=== PATIENT | female | born 1970 | race Hispanic/Latino ===

== ENCOUNTER → 2021-06-24 | Outpatient (CLI) | payer MEDICARE | LOC: US 13:10 | PROVIDERS: ATTEND Internal Medicine | DX: R10.10 Upper abdominal pain, unspecified (principal); K80.20 Calculus of gallbladder without cholecystitis without obstruction | CPT/HCPCS: 76705 ==

== ENCOUNTER 2024-03-25 19:09 | Inpatient (IN) | payer MEDICARE ==
[~2024-03-25] VITALS: Ht 152.4 cm; Wt 95.7 kg
[~2024-03-25 19:09] MED LIST: AMLODIPINE BESY10 MG PO; ASPIRIN81 MG PO; ATORVASTATIN CA40 MG PO; CLOPIDOGREL75 MG PO; FUROSEMIDE40 MG PO; HYDRALAZINE HCL50 MG PO; LINZESS290 MCG PO; METOPROLOL TART50 MG PO; PROBIOTIC & AC1 EACH PO; QUETIAPINE FUM100 MG PO; RYBELSUS7 MG PO
[2024-03-25] MEDS: NITROGLYCERIN 2% OINT 1 GM PKT TOP STA (20:07)
[2024-03-25 20:12] LABS: BASOPHILS # (AUTO) 0.1 (0.0-0.1); BASOPHILS % 0.5 % (0.0-1.0); EOSINOPHILS # (AUTO) 0.2 (0.0-0.4); EOSINOPHILS % 1.7 % (0.0-6.0); HEMATOCRIT 39.4 % (34.2-44.1); HEMOGLOBIN 12.9 g/dL (12.0-16.0); LYMPHOCYTES # (AUTO) 2.8 (1.0-3.2); LYMPHOCYTES % 25.9 % (18.0-39.1); MEAN CORPUSCULAR HEMOGLOBIN 24.4 pg (28-32); MEAN CORPUSCULAR HGB CONC 32.7 g/dL (31-35); MEAN CORPUSCULAR VOLUME 74.6 fL (81-99); MONOCYTES # (AUTO) 0.9 (0.2-0.8); MONOCYTES % 8.4 % (4.4-11.3); NEUTROPHILS # (AUTO) 6.9 (2.1-6.9); NEUTROPHILS % 63.1 % (38.7-80.0); PLATELET COUNT 355 x10e3/uL (140-360); RED BLOOD COUNT 5.28 x10e6/uL (3.6-5.1); RED CELL DISTRIBUTION WIDTH 15.5 % (11.7-14.4)
[2024-03-25 20:32] LABS: ALBUMIN 4.4 g/dL (3.5-5.0); ALBUMIN/GLOBULIN RATIO 1.1 (0.8-2.0); ANION GAP 18.3 mmol/L (8-16); BILIRUBIN,TOTAL 0.5 mg/dL (0.2-1.2); CALCIUM 9.8 mg/dL (8.4-10.2); CREATININE, SERUM 0.98 mg/dL (0.57-1.11); TOTAL PROTEIN 8.5 g/dL (6.5-8.1)
[2024-03-25 20:33] LABS: POTASSIUM 3.3 mmol/L (3.5-5.1)
[2024-03-25] MEDS: FAMOTIDINE 20 MG/2 ML VIAL IV STA (20:40)
[2024-03-25] MEDS: ONDANSETRON HCL INJ 2MG/ML 2ML 2 MG/ML VIAL IV STA ×2 (20:41→21:50)
[2024-03-25 20:51] LABS: TROPONIN I 0.012 ng/mL (0-0.300)
[2024-03-25] MEDS ORDERED: ONDANSETRON HCL INJ 2MG/ML 2ML 2 MG/ML VIAL IV PRN (21:15)
[2024-03-25] MEDS ORDERED: IOPAMIDOL 370 MG/ML 100 ML INFUS..BTL INJ ONE (21:46)
[2024-03-25] MEDS: Morphine 4mg INJECTION 4 MG/ML INJ IV STA (21:50)
[2024-03-25 22:10] VITALS: PULSE 88; RESP 17; O2SAT 96
[2024-03-25] MEDS: SODIUM CHLORIDE 0.9% 1000ML 1,000 ML IV SCH (22:17)
[2024-03-25 22:44] VITALS: BP 116/79; PULSE 86; RESP 19; TEMP 97.7; O2SAT 96
[2024-03-25] MEDS: PROMETHAZINE 25MG/ NS 50ML (IV) IV STA (23:49)
[2024-03-26] VITALS (13 sets, daily range): BP systolic 116–140; BP diastolic 73–86; PULSE 79–99; RESP 16–19; TEMP 97.6–98.2; O2SAT 94–100
[2024-03-26] MEDS: QUETIAPINE FUMARATE 100 MG TAB PO SCH ×2 (01:12→20:31)
[2024-03-26] MEDS: Morphine 4mg INJECTION 4 MG/ML INJ IV PRN (05:37)
[2024-03-26 06:21] LABS: BASOPHILS # (AUTO) 0.1 (0.0-0.1); BASOPHILS % 0.7 % (0.0-1.0); EOSINOPHILS # (AUTO) 0.1 (0.0-0.4); EOSINOPHILS % 1.4 % (0.0-6.0); HEMOGLOBIN 11.6 g/dL (12.0-16.0); LYMPHOCYTES # (AUTO) 2.4 (1.0-3.2); LYMPHOCYTES % 25.9 % (18.0-39.1); MEAN CORPUSCULAR HEMOGLOBIN 24.7 pg (28-32); MEAN CORPUSCULAR HGB CONC 32.2 g/dL (31-35); MEAN CORPUSCULAR VOLUME 76.8 fL (81-99); MONOCYTES # (AUTO) 0.7 (0.2-0.8); MONOCYTES % 7.6 % (4.4-11.3); NEUTROPHILS # (AUTO) 5.8 (2.1-6.9); NEUTROPHILS % 63.8 % (38.7-80.0); PLATELET COUNT 308 x10e3/uL (140-360); RED BLOOD COUNT 4.69 x10e6/uL (3.6-5.1); RED CELL DISTRIBUTION WIDTH 15.7 % (11.7-14.4); WHITE BLOOD COUNT 9.09 x10e3/uL (4.8-10.8)
[2024-03-26 06:22] LABS: ALBUMIN/GLOBULIN RATIO 1.1 (0.8-2.0); ANION GAP 16.8 mmol/L (8-16); BILIRUBIN,TOTAL 0.4 mg/dL (0.2-1.2); CALCIUM 9.1 mg/dL (8.4-10.2); CREATININE, SERUM 0.79 mg/dL (0.57-1.11); POTASSIUM 3.8 mmol/L (3.5-5.1); TOTAL PROTEIN 7.6 g/dL (6.5-8.1)
[2024-03-26 06:46] LABS: TROPONIN I 0.019 ng/mL (0-0.300)
[2024-03-26] MEDS ORDERED: ALBUTEROL/IPRATROPIUM 3 ML NEB NEB PRN (12:45)
[2024-03-26] MEDS ORDERED: DOCUSATE SODIUM 100 MG CAP PO PRN (12:45)
[2024-03-26] MEDS ORDERED: DEXTROSE 50% SYRINGE 50 ML IV PRN (12:45)
[2024-03-26] MEDS ORDERED: METOPROLOL TARTRATE INJ 1 MG/ML VIAL IV PRN (12:45)
[2024-03-26 14:15] LABS: CHOL/HDL RATIO 3.9 (3.0-3.6)
[2024-03-26] MEDS: ASPIRIN 81 MG CHEW TAB PO SCH (14:23)
[2024-03-26] MEDS: CLOPIDOGREL BISULFATE 75 MG TAB PO SCH (14:23)
[2024-03-26] MEDS: LINACLOTIDE 145 MCG CAPSULE PO SCH (14:24)
[2024-03-26] MEDS: AMLODIPINE BESYLATE 10 MG TAB PO SCH (14:26)
[2024-03-26] MEDS: INSULIN REGULAR, HUMAN 100 UNIT/1 ML SQ SCH (16:30)
[2024-03-26] MEDS ORDERED: AMLODIPINE BESYLATE 10 MG TAB PO SCH (17:00)
[2024-03-26] MEDS: METOPROLOL TARTRATE 50 MG TAB PO SCH (17:20)
[2024-03-26] MEDS: HYDRALAZINE HCL 25 MG TAB PO SCH (17:21)
[2024-03-26 17:25] LABS: TROPONIN I 0.003 ng/mL (0-0.300)
[2024-03-26] MEDS: ATORVASTATIN 40 MG TAB PO SCH (20:31)
[2024-03-26] MEDS: ONDANSETRON HCL INJ 2MG/ML 2ML 2 MG/ML VIAL IV PRN (22:30)
[2024-03-27] VITALS (7 sets, daily range): BP systolic 124–140; BP diastolic 71–82; PULSE 82–93; RESP 17–19; TEMP 97.8–98.6; O2SAT 93–98
[2024-03-27 07:10] LABS: BASOPHILS # (AUTO) 0.1 (0.0-0.1); BASOPHILS % 0.9 % (0.0-1.0); EOSINOPHILS # (AUTO) 0.3 (0.0-0.4); EOSINOPHILS % 3.9 % (0.0-6.0); HEMATOCRIT 33.9 % (34.2-44.1); HEMOGLOBIN 10.7 g/dL (12.0-16.0); LYMPHOCYTES % 28.9 % (18.0-39.1); MEAN CORPUSCULAR HEMOGLOBIN 24.3 pg (28-32); MEAN CORPUSCULAR HGB CONC 31.6 g/dL (31-35); MEAN CORPUSCULAR VOLUME 76.9 fL (81-99); MONOCYTES # (AUTO) 0.6 (0.2-0.8); MONOCYTES % 9.1 % (4.4-11.3); NEUTROPHILS # (AUTO) 3.9 (2.1-6.9); NEUTROPHILS % 56.5 % (38.7-80.0); PLATELET COUNT 263 x10e3/uL (140-360); RED BLOOD COUNT 4.41 x10e6/uL (3.6-5.1); RED CELL DISTRIBUTION WIDTH 15.6 % (11.7-14.4); WHITE BLOOD COUNT 6.85 x10e3/uL (4.8-10.8)
[2024-03-27 07:40] LABS: ANION GAP 13.3 mmol/L (8-16); CALCIUM 8.7 mg/dL (8.4-10.2); CREATININE, SERUM 0.76 mg/dL (0.57-1.11)
[2024-03-27 07:44] LABS: POTASSIUM 3.3 mmol/L (3.5-5.1)
[2024-03-27] MEDS: SENNOSIDES 8.6 MG TAB PO SCH (11:15)
[2024-03-27] MEDS: DOCUSATE SODIUM 100 MG CAP PO SCH (11:15)
[2024-03-27] MEDS: METOCLOPRAMIDE HCL 10 MG/2ML VIAL IV ONE (12:39)
[2024-03-27] MEDS: BISACODYL 5 MG TAB EC PO ONE ×3 (12:40→16:14)
[2024-03-27] MEDS: METOCLOPRAMIDE HCL 10 MG/2ML VIAL IV SCH (17:30)
[2024-03-27] MEDS: LEVOFLOXACIN 500MG/D5W 100ML 100 ML IV SCH (23:43)
[2024-03-27] MEDS: METRONIDAZOLE 500MG/NS 100ML 100 ML IV SCH (23:44)
[2024-03-28] VITALS (8 sets, daily range): BP systolic 119–139; BP diastolic 65–80; PULSE 84–105; RESP 16–20; TEMP 97.8–98.9; O2SAT 94–100
[2024-03-28] MEDS ORDERED: METRONIDAZOLE 500MG/NS 100ML 100 ML IV SCH
[2024-03-28 02:16] LABS: % IRON SATURATION 17 % (15-50); IRON 59 ug/dL (50-170); TOTAL IRON BINDING CAPACITY 350 ug/dL (261-478); TRANSFERRIN 250 mg/dL (180-382)
[2024-03-28 02:50] LABS: FOLATE 9.8 ng/mL (7.0-15.4)
[2024-03-28 06:48] LABS: BASOPHILS # (AUTO) 0.1 (0.0-0.1); BASOPHILS % 0.5 % (0.0-1.0); EOSINOPHILS # (AUTO) 0.2 (0.0-0.4); HEMATOCRIT 34.1 % (34.2-44.1); HEMOGLOBIN 11.4 g/dL (12.0-16.0); LYMPHOCYTES # (AUTO) 1.9 (1.0-3.2); LYMPHOCYTES % 17.7 % (18.0-39.1); MEAN CORPUSCULAR HEMOGLOBIN 25.1 pg (28-32); MEAN CORPUSCULAR HGB CONC 33.4 g/dL (31-35); MEAN CORPUSCULAR VOLUME 74.9 fL (81-99); MONOCYTES # (AUTO) 0.8 (0.2-0.8); MONOCYTES % 7.6 % (4.4-11.3); NEUTROPHILS # (AUTO) 7.9 (2.1-6.9); NEUTROPHILS % 71.6 % (38.7-80.0); PLATELET COUNT 265 x10e3/uL (140-360); RED BLOOD COUNT 4.55 x10e6/uL (3.6-5.1); RED CELL DISTRIBUTION WIDTH 15.8 % (11.7-14.4); WHITE BLOOD COUNT 10.96 x10e3/uL (4.8-10.8)
[2024-03-28 07:12] LABS: ANION GAP 13.4 mmol/L (8-16); CALCIUM 8.7 mg/dL (8.4-10.2); CREATININE, SERUM 0.72 mg/dL (0.57-1.11)
[2024-03-28 07:13] LABS: POTASSIUM 3.4 mmol/L (3.5-5.1)
[2024-03-28] MEDS: ENOXAPARIN 30 MG/0.3 ML SYR SC SCH (17:05)
[2024-03-29] VITALS (9 sets, daily range): BP systolic 120–146; BP diastolic 74–86; PULSE 89–100; RESP 16–20; TEMP 97.8–98.6; O2SAT 96–99
[2024-03-29] MEDS: CYANOCOBALAMIN INJ 1,000 MCG/ML VIAL IM ONE (00:01)
[2024-03-29] MEDS: SODIUM CHLORIDE 0.9% 1000ML 1,000 ML IV SCH (06:48)
[2024-03-29] MEDS ORDERED: IOPAMIDOL 370 MG/ML 100 ML INFUS..BTL INJ ONE (07:18)
[2024-03-29] MEDS: IRON-VITAMIN-MINERAL CAPSULE PO SCH (08:06)
[2024-03-29] MEDS: CYANOCOBALAMIN INJ 1,000 MCG/ML VIAL IM SCH (08:07)
[2024-03-29] MEDS: MELATONIN 3 MG TAB PO PRN (20:07)
[2024-03-29] MEDS: SIMETHICONE 80 MG CHEW PO PRN (20:08)
[2024-03-30] VITALS (10 sets, daily range): BP systolic 117–130; BP diastolic 62–84; PULSE 76–93; RESP 16–20; TEMP 97.6–98.7; O2SAT 97–100
[2024-03-31] VITALS (9 sets, daily range): BP systolic 121–143; BP diastolic 62–83; PULSE 70–92; RESP 16–18; TEMP 97.3–98.2; O2SAT 97–100
[2024-03-31 07:12] LABS: BASOPHILS # (AUTO) 0.1 (0.0-0.1); BASOPHILS % 0.6 % (0.0-1.0); EOSINOPHILS # (AUTO) 0.3 (0.0-0.4); EOSINOPHILS % 3.6 % (0.0-6.0); HEMATOCRIT 31.3 % (34.2-44.1); HEMOGLOBIN 10.3 g/dL (12.0-16.0); LYMPHOCYTES # (AUTO) 2.5 (1.0-3.2); LYMPHOCYTES % 28.7 % (18.0-39.1); MEAN CORPUSCULAR HEMOGLOBIN 24.7 pg (28-32); MEAN CORPUSCULAR HGB CONC 32.9 g/dL (31-35); MEAN CORPUSCULAR VOLUME 75.1 fL (81-99); MONOCYTES # (AUTO) 0.8 (0.2-0.8); MONOCYTES % 9.3 % (4.4-11.3); NEUTROPHILS # (AUTO) 4.8 (2.1-6.9); NEUTROPHILS % 56.3 % (38.7-80.0); PLATELET COUNT 279 x10e3/uL (140-360); RED BLOOD COUNT 4.17 x10e6/uL (3.6-5.1); RED CELL DISTRIBUTION WIDTH 16.8 % (11.7-14.4); WHITE BLOOD COUNT 8.53 x10e3/uL (4.8-10.8)
[2024-03-31 07:30] LABS: ANION GAP 14.2 mmol/L (8-16); CALCIUM 8.3 mg/dL (8.4-10.2); CREATININE, SERUM 0.68 mg/dL (0.57-1.11)
[2024-03-31 07:35] LABS: POTASSIUM 3.2 mmol/L (3.5-5.1)
[2024-04-01] VITALS: BP 121/66; PULSE 86; RESP 17; TEMP 98.3; O2SAT 96
[2024-04-01 04:00] VITALS: BP 133/83; PULSE 91; RESP 17; TEMP 97.9; O2SAT 98
[2024-04-01 07:25] VITALS: PULSE 87; RESP 18; O2SAT 97
[2024-04-01 07:44] VITALS: BP 137/80; PULSE 100; RESP 18; TEMP 97.7; O2SAT 97
[2024-04-01 07:57] VITALS: BP 137/80; PULSE 100; RESP 18; TEMP 97.7; O2SAT 97
[2024-04-01 08:22] VITALS: BP 137/80; PULSE 100
[2024-04-01] MEDS ORDERED: METAMUCIL FIBE3.4 GM PO (09:54)
[2024-04-01] MEDS ORDERED: ONDANSETRON ODT4 MG PO (09:54)
[2024-04-01] MEDS ORDERED: SENOKOT8.6 MG PO (09:54)
[2024-04-01] MEDS ORDERED: METRONIDAZOLE500 MG PO (09:54)
[2024-04-01] MEDS ORDERED: PROTONIX40 MG PO (09:54)
[2024-04-01] MEDS ORDERED: LEVOFLOXACIN250 MG PO (09:55)
[2024-04-01] MEDS: POTASSIUM CHLORIDE 20 MEQ TAB CR PO ONE (10:09)
== END 2024-04-01 10:29 | disposition home or self-care (01) | DRG 391 ==
LOC: ER 19:13 → ERHOLD 21:09 → MED/SURG3 23:06 → OBSVTOIN 03-27 13:29
PROVIDERS: ADMIT Internal Medicine; ATTEND Internal Medicine
DX: K57.32 Diverticulitis of large intestine without perforation or abscess without bleeding (principal); U07.1 COVID-19; I13.0 Hypertensive heart and chronic kidney disease with heart failure and stage 1 through stage 4 chronic kidney disease, or unspecified chronic kidney disease; I50.30 Unspecified diastolic (congestive) heart failure; Z68.41 Body mass index [BMI] 40.0-44.9, adult; E66.9 Obesity, unspecified; E11.22 Type 2 diabetes mellitus with diabetic chronic kidney disease; E11.42 Type 2 diabetes mellitus with diabetic polyneuropathy; I25.10 Atherosclerotic heart disease of native coronary artery without angina pectoris; E78.49 Other hyperlipidemia; M32.9 Systemic lupus erythematosus, unspecified; K59.09 Other constipation; M19.90 Unspecified osteoarthritis, unspecified site; N83.292 Other ovarian cyst, left side; R11.2 Nausea with vomiting, unspecified; N18.9 Chronic kidney disease, unspecified; H54.8 Legal blindness, as defined in USA; Z79.84 Long term (current) use of oral hypoglycemic drugs; Z79.82 Long term (current) use of aspirin; Z79.02 Long term (current) use of antithrombotics/antiplatelets; Z95.1 Presence of aortocoronary bypass graft; Z86.73 Personal history of transient ischemic attack (TIA), and cerebral infarction without residual deficits; Z88.8 Allergy status to other drugs, medicaments and biological substances
CPT/HCPCS: 36415; 71045; 74177; 80048; 80053; 80061; 82550; 82607; 82746; 82948; 83036; 83540; 83690; 83880; 84466; 84484; 85025; 85045; 93005; 93306; 94799; 99284; G0378; J1650; J1956; J2270; J2405; J2550; J2765; J3420; J7030; Q9967; U0002

== ENCOUNTER 2024-08-10 13:52 | Emergency (ER) | payer MEDICARE ==
[~2024-08-10] VITALS: Ht 152.4 cm; Wt 95.7 kg
[~2024-08-10 13:52] MED LIST changes: +LEVOFLOXACIN250 MG PO; +METAMUCIL FIBE3.4 GM PO; +METRONIDAZOLE500 MG PO; +NEURONTIN100 MG PO; +OMEPRAZOLE40 MG PO; +ONDANSETRON ODT4 MG PO; +PROTONIX40 MG PO; +SENOKOT8.6 MG PO
[2024-08-10 14:14] VITALS: TEMP 98.8
[2024-08-10 14:36] LABS: BASOPHILS # (AUTO) 0.1 (0.0-0.1); BASOPHILS % 0.7 % (0.0-1.0); EOSINOPHILS # (AUTO) 0.2 (0.0-0.4); EOSINOPHILS % 2.3 % (0.0-6.0); HEMATOCRIT 41.5 % (34.2-44.1); HEMOGLOBIN 13.4 g/dL (12.0-16.0); LYMPHOCYTES # (AUTO) 2.8 (1.0-3.2); LYMPHOCYTES % 32.8 % (18.0-39.1); MEAN CORPUSCULAR HEMOGLOBIN 26.1 pg (28-32); MEAN CORPUSCULAR HGB CONC 32.3 g/dL (31-35); MEAN CORPUSCULAR VOLUME 80.9 fL (81-99); MONOCYTES # (AUTO) 0.7 (0.2-0.8); MONOCYTES % 8.3 % (4.4-11.3); NEUTROPHILS # (AUTO) 4.7 (2.1-6.9); NEUTROPHILS % 55.4 % (38.7-80.0); PLATELET COUNT 280 x10e3/uL (140-360); RED BLOOD COUNT 5.13 x10e6/uL (3.6-5.1); RED CELL DISTRIBUTION WIDTH 15.8 % (11.7-14.4); WHITE BLOOD COUNT 8.53 x10e3/uL (4.8-10.8)
[2024-08-10 14:40] LABS: INR 0.94; PROTHROMBIN TIME 13.1 seconds (11.9-14.5)
[2024-08-10 14:41] LABS: PARTIAL THROMBOPLASTIN TIME 27.1 seconds (23.8-35.5)
[2024-08-10 14:50] LABS: ALANINE AMINOTRANSFERASE 44 IU/L (0-55); ALBUMIN 4.3 g/dL (3.5-5.0); ALBUMIN/GLOBULIN RATIO 1.1 (0.8-2.0); ALKALINE PHOSPHATASE 89 IU/L (40-150); ANION GAP 16.6 mmol/L (8-16); BILIRUBIN,TOTAL 0.4 mg/dL (0.2-1.2); BLOOD UREA NITROGEN 17 mg/dL (7-26); BUN/CREATININE RATIO 16 (6-25); CALCIUM 9.8 mg/dL (8.4-10.2); CARBON DIOXIDE 21 mmol/L (22-29); CHLORIDE 102 mmol/L (98-107); CREATINE KINASE 61 IU/L (29-168); CREATININE, SERUM 1.08 mg/dL (0.57-1.11); EST GLOMERULAR FILTRATION RATE 62 ML/MIN (>=60); GLUCOSE 255 mg/dL (74-118); LIPASE 60 U/L (8-78); MAGNESIUM 1.9 MG/DL (1.3-2.1); POTASSIUM 3.6 mmol/L (3.5-5.1); SODIUM 136 mmol/L (136-145); TOTAL PROTEIN 8.1 g/dL (6.5-8.1)
[2024-08-10 14:55] LABS: TROPONIN I 0.004 ng/mL (0-0.300)
[2024-08-10] MEDS ORDERED: IOPAMIDOL 370 MG/ML 100 ML INFUS..BTL INJ ONE (15:03)
[2024-08-10] MEDS: ONDANSETRON HCL INJ 2MG/ML 2ML 2 MG/ML VIAL IV STA (15:23)
[2024-08-10] MEDS: Morphine 4mg INJECTION 4 MG/ML INJ IV STA (15:24)
[2024-08-10] MEDS: SODIUM CHLORIDE 0.9% 500ML 500 ML IV ONE (15:24)
[2024-08-10 17:17] LABS: BILIRUBIN,URINE NEGATIVE (NEGATIVE); CLARITY,URINE CLEAR (CLEAR); COLOR,URINE YELLOW (YELLOW); GLUCOSE, URINE NEGATIVE (NEGATIVE); KETONES,URINE NEGATIVE (NEGATIVE); LEUKOCYTE ESTERASE ,URINE NEGATIVE (NEGATIVE); NITRITE,URINE NEGATIVE (NEGATIVE); PH,URINE 6 (5 - 7); PROTEIN,URINE DIPSTICK NEGATIVE (NEGATIVE); URINE UROBILINOGEN 0.2 mg/dL (0.2 - 1)
[2024-08-10 17:18] LABS: BACTERIA,URINE FEW /HPF; EPITHELIAL CELLS,URINE MANY /LPF; RBC,URINE 0-5 /HPF (0-5); WBC,URINE (MAN) 0-5 /HPF (0-5)
[2024-08-10 17:19] LABS: AMPHETAMINES SCREEN,URINE NEGATIVE (NEGATIVE); BENZODIAZEPINES SCREEN,URINE NEGATIVE (NEGATIVE); CANNABINOIDS SCREEN,URINE NEGATIVE (NEGATIVE); METHADONE SCREEN, URINE NEGATIVE (NEGATIVE); OPIATES SCREEN,URINE POSITIVE (NEGATIVE); PHENCYCLIDINE SCREEN,URINE NEGATIVE (NEGATIVE)
[2024-08-10] MEDS ORDERED: DICYCLOMINE HCL20 MG PO (18:21)
[2024-08-10] MEDS ORDERED: ONDANSETRON ODT4 MG PO (18:21)
[2024-08-10 18:30] VITALS: PULSE 85; RESP 14; O2SAT 96
== END 2024-08-10 18:44 | disposition home or self-care (01) ==
LOC: ER 14:01
DX: R10.11 Right upper quadrant pain (principal); R11.0 Nausea; I12.9 Hypertensive chronic kidney disease with stage 1 through stage 4 chronic kidney disease, or unspecified chronic kidney disease; E11.22 Type 2 diabetes mellitus with diabetic chronic kidney disease; E11.65 Type 2 diabetes mellitus with hyperglycemia; N18.9 Chronic kidney disease, unspecified; I50.9 Heart failure, unspecified; E78.5 Hyperlipidemia, unspecified; I25.10 Atherosclerotic heart disease of native coronary artery without angina pectoris; D64.9 Anemia, unspecified; M32.9 Systemic lupus erythematosus, unspecified; F41.9 Anxiety disorder, unspecified; R94.31 Abnormal electrocardiogram [ECG] [EKG]; Z95.1 Presence of aortocoronary bypass graft; Z86.73 Personal history of transient ischemic attack (TIA), and cerebral infarction without residual deficits
CPT/HCPCS: 36415; 71045; 74177; 76705; 80053; 80307; 81001; 82550; 83690; 83735; 83880; 84484; 84702; 85025; 85610; 85730; 93005; 99284; J2270; J2405; J2470; J7040; Q9967

== ENCOUNTER → 2024-08-14 | Day surgery (SDC) | payer MEDICARE ==
[2024-08-06 14:26] LABS: BASOPHILS # (AUTO) 0.1 (0.0-0.1); BASOPHILS % 0.7 % (0.0-1.0); EOSINOPHILS # (AUTO) 0.2 (0.0-0.4); EOSINOPHILS % 2.2 % (0.0-6.0); HEMATOCRIT 40.9 % (34.2-44.1); HEMOGLOBIN 13.2 g/dL (12.0-16.0); LYMPHOCYTES % 33.1 % (18.0-39.1); MEAN CORPUSCULAR HEMOGLOBIN 26.5 pg (28-32); MEAN CORPUSCULAR HGB CONC 32.3 g/dL (31-35); MEAN CORPUSCULAR VOLUME 82.1 fL (81-99); MONOCYTES # (AUTO) 0.7 (0.2-0.8); NEUTROPHILS % 55.3 % (38.7-80.0); PLATELET COUNT 274 x10e3/uL (140-360); RED BLOOD COUNT 4.98 x10e6/uL (3.6-5.1); RED CELL DISTRIBUTION WIDTH 15.9 % (11.7-14.4); WHITE BLOOD COUNT 9.03 x10e3/uL (4.8-10.8)
[~2024-08-14] MED LIST changes: +DEXAMETHASONE SOD PHOS INJ 4 MG/ML SDV ONE; +DICYCLOMINE HCL20 MG PO; +LIDOCAINE HCL 2% LOCAL INJ 5 ML SDV VIAL INJ ONE; +ONDANSETRON HCL INJ 2MG/ML 2ML 2 MG/ML VIAL ONE; +PROPOFOL IV EMULSION 10 MG/ML 20 ML VIAL ONE
[2024-08-14] MEDS: LACTATED RINGER'S 1,000 ML ONE (09:49)
[2024-08-14 12:05] VITALS: BP 120/65; PULSE 79; RESP 14; O2SAT 100
== END | disposition home or self-care (01) ==
LOC: OR 08:50
PROVIDERS: ATTEND Internal Medicine Gastroenterology
DX: K29.00 Acute gastritis without bleeding (principal); K29.50 Unspecified chronic gastritis without bleeding; Z78.9 Other specified health status; K59.00 Constipation, unspecified; K21.00 Gastro-esophageal reflux disease with esophagitis, without bleeding; K44.9 Diaphragmatic hernia without obstruction or gangrene; K57.30 Diverticulosis of large intestine without perforation or abscess without bleeding; K64.8 Other hemorrhoids; Z71.3 Dietary counseling and surveillance; I11.0 Hypertensive heart disease with heart failure; I50.9 Heart failure, unspecified; E11.9 Type 2 diabetes mellitus without complications; I25.810 Atherosclerosis of coronary artery bypass graft(s) without angina pectoris; Z95.1 Presence of aortocoronary bypass graft; J40 Bronchitis, not specified as acute or chronic; F41.9 Anxiety disorder, unspecified; F32.A Depression, unspecified; G89.29 Other chronic pain; H54.61 Unqualified visual loss, right eye, normal vision left eye; Z88.8 Allergy status to other drugs, medicaments and biological substances; Z01.810 Encounter for preprocedural cardiovascular examination; Z01.812 Encounter for preprocedural laboratory examination; Z79.02 Long term (current) use of antithrombotics/antiplatelets; Z79.82 Long term (current) use of aspirin; Z79.84 Long term (current) use of oral hypoglycemic drugs; Z79.899 Other long term (current) drug therapy; Z68.39 Body mass index [BMI] 39.0-39.9, adult; Z86.73 Personal history of transient ischemic attack (TIA), and cerebral infarction without residual deficits
CPT/HCPCS: 36415; 43239; 45378; 81025; 85025; 88305; 88342; 93005; J1100; J2001; J2405; J2704; J7121

== ENCOUNTER 2024-10-02 15:53 | Emergency (ER) | payer MEDICARE ==
[~2024-10-02] VITALS: Ht 152.4 cm; Wt 91.2 kg
[~2024-10-02 15:53] MED LIST changes: -DEXAMETHASONE SOD PHOS INJ 4 MG/ML SDV ONE; -LIDOCAINE HCL 2% LOCAL INJ 5 ML SDV VIAL INJ ONE; -ONDANSETRON HCL INJ 2MG/ML 2ML 2 MG/ML VIAL ONE; -PROPOFOL IV EMULSION 10 MG/ML 20 ML VIAL ONE
[2024-10-02 16:05] VITALS: TEMP 98.4
[2024-10-02 16:39] LABS: BASOPHILS % 0.1 % (0.0-1.0); EOSINOPHILS % 0.1 % (0.0-6.0); HEMATOCRIT 41.1 % (34.2-44.1); HEMOGLOBIN 13.6 g/dL (12.0-16.0); LYMPHOCYTES # (AUTO) 2.5 (1.0-3.2); LYMPHOCYTES % 17.2 % (18.0-39.1); MEAN CORPUSCULAR HEMOGLOBIN 26.8 pg (28-32); MEAN CORPUSCULAR HGB CONC 33.1 g/dL (31-35); MEAN CORPUSCULAR VOLUME 81.1 fL (81-99); MONOCYTES # (AUTO) 1.2 (0.2-0.8); MONOCYTES % 8.3 % (4.4-11.3); NEUTROPHILS # (AUTO) 10.6 (2.1-6.9); NEUTROPHILS % 72.7 % (38.7-80.0); PLATELET COUNT 298 x10e3/uL (140-360); RED BLOOD COUNT 5.07 x10e6/uL (3.6-5.1); RED CELL DISTRIBUTION WIDTH 14.8 % (11.7-14.4); WHITE BLOOD COUNT 14.52 x10e3/uL (4.8-10.8)
[2024-10-02 16:41] LABS: BILIRUBIN,URINE NEGATIVE (NEGATIVE); CLARITY,URINE CLOUDY (CLEAR); COLOR,URINE YELLOW (YELLOW); GLUCOSE, URINE 500 (NEGATIVE); KETONES,URINE NEGATIVE (NEGATIVE); LEUKOCYTE ESTERASE ,URINE NEGATIVE (NEGATIVE); NITRITE,URINE NEGATIVE (NEGATIVE); PH,URINE 6 (5 - 7); PROTEIN,URINE DIPSTICK NEGATIVE (NEGATIVE); URINE UROBILINOGEN 0.2 mg/dL (0.2 - 1)
[2024-10-02 16:58] LABS: ALBUMIN 4.1 g/dL (3.5-5.0); ALBUMIN/GLOBULIN RATIO 1.1 (0.8-2.0); ANION GAP 16.9 mmol/L (8-16); BILIRUBIN,TOTAL 0.5 mg/dL (0.2-1.2); CALCIUM 9.8 mg/dL (8.4-10.2); CREATININE, SERUM 1.06 mg/dL (0.57-1.11); POTASSIUM 3.9 mmol/L (3.5-5.1); TOTAL PROTEIN 7.7 g/dL (6.5-8.1)
[2024-10-02 17:00] LABS: BACTERIA,URINE MANY /HPF; WBC,URINE (MAN) 21-50 /HPF (0-5)
[2024-10-02 17:01] LABS: EPITHELIAL CELLS,URINE MANY /LPF
[2024-10-02] MEDS ORDERED: IOPAMIDOL 370 MG/ML 100 ML INFUS..BTL INJ ONE (17:12)
[2024-10-02] MEDS ORDERED: METRONIDAZOLE500 MG PO (18:11)
[2024-10-02] MEDS ORDERED: CEFDINIR300 MG PO (18:11)
[2024-10-02] MEDS ORDERED: DICYCLOMINE HCL20 MG PO (18:13)
[2024-10-02] MEDS: SODIUM CHLORIDE 0.9% 1000ML 1,000 ML IV SCH (18:16)
[2024-10-02] MEDS: DICYCLOMINE HCL 20 MG/2 ML VIAL IM ONE (18:16)
[2024-10-02] MEDS: KETOROLAC TROMETHAMINE 30 MG/ML VIAL IV STA (18:16)
[2024-10-02] MEDS: INSULIN REGULAR, HUMAN 100 UNIT/1 ML IV ONE (18:17)
[2024-10-02] MEDS: ONDANSETRON HCL INJ 2MG/ML 2ML 2 MG/ML VIAL IV STA (18:17)
[2024-10-02 18:25] VITALS: PULSE 77; RESP 16; O2SAT 97
[2024-10-02] MEDS ORDERED: KETOROLAC TROME10 MG PO (18:51)
== END 2024-10-02 18:57 | disposition home or self-care (01) ==
LOC: ER 16:55
DX: R10.32 Left lower quadrant pain (principal); I12.9 Hypertensive chronic kidney disease with stage 1 through stage 4 chronic kidney disease, or unspecified chronic kidney disease; E11.22 Type 2 diabetes mellitus with diabetic chronic kidney disease; E11.65 Type 2 diabetes mellitus with hyperglycemia; N18.9 Chronic kidney disease, unspecified; I50.9 Heart failure, unspecified; E78.5 Hyperlipidemia, unspecified; I25.10 Atherosclerotic heart disease of native coronary artery without angina pectoris; D64.9 Anemia, unspecified; F41.9 Anxiety disorder, unspecified; M32.9 Systemic lupus erythematosus, unspecified; Z87.19 Personal history of other diseases of the digestive system; Z95.1 Presence of aortocoronary bypass graft
CPT/HCPCS: 36415; 74177; 80053; 81001; 85025; 99284; J0500; J0696; J1817; J1885; J2405; J7030; Q9967

== ENCOUNTER 2025-03-16 03:21 | Emergency (ER) | payer MEDICARE ==
[~2025-03-16] VITALS: Ht 152.4 cm; Wt 93.0 kg
[~2025-03-16 03:21] MED LIST changes: +CEFDINIR300 MG PO; +KETOROLAC TROME10 MG PO
[2025-03-16 03:25] VITALS: RESP 22; TEMP 97.5
[2025-03-16] MEDS: Morphine 4mg INJECTION 4 MG/ML INJ IV ONE (03:49)
[2025-03-16] MEDS: ONDANSETRON HCL INJ 2MG/ML 2ML 2 MG/ML VIAL IV STA (03:49)
[2025-03-16 03:54] LABS: BASOPHILS # (AUTO) 0.1 (0.0-0.1); BASOPHILS % 0.4 % (0.0-1.0); EOSINOPHILS # (AUTO) 0.1 (0.0-0.4); EOSINOPHILS % 0.6 % (0.0-6.0); HEMATOCRIT 40.8 % (34.2-44.1); HEMOGLOBIN 13.8 g/dL (12.0-16.0); LYMPHOCYTES # (AUTO) 1.7 (1.0-3.2); LYMPHOCYTES % 12.3 % (18.0-39.1); MEAN CORPUSCULAR HEMOGLOBIN 26.7 pg (28-32); MEAN CORPUSCULAR HGB CONC 33.8 g/dL (31-35); MEAN CORPUSCULAR VOLUME 79.1 fL (81-99); MONOCYTES # (AUTO) 0.7 (0.2-0.8); MONOCYTES % 5.1 % (4.4-11.3); NEUTROPHILS # (AUTO) 11.3 (2.1-6.9); PLATELET COUNT 316 x10e3/uL (140-360); RED BLOOD COUNT 5.16 x10e6/uL (3.6-5.1); RED CELL DISTRIBUTION WIDTH 14.7 % (11.7-14.4); WHITE BLOOD COUNT 13.93 x10e3/uL (4.8-10.8)
[2025-03-16 04:06] LABS: LIPASE 70 U/L (8-78)
[2025-03-16 04:08] LABS: ALBUMIN 4.4 g/dL (3.5-5.0); ALBUMIN/GLOBULIN RATIO 1.2 (0.8-2.0); ANION GAP 21.6 mmol/L (8-16); BILIRUBIN,TOTAL 0.4 mg/dL (0.2-1.2); CALCIUM 9.6 mg/dL (8.4-10.2); CREATININE, SERUM 1.11 mg/dL (0.57-1.11); POTASSIUM 3.6 mmol/L (3.5-5.1); TOTAL PROTEIN 8.1 g/dL (6.5-8.1)
[2025-03-16 04:15] LABS: TROPONIN I < 0.001 ng/mL (0-0.300)
[2025-03-16] MEDS ORDERED: IOPAMIDOL 370 MG/ML 100 ML INFUS..BTL INJ ONE (04:22)
[2025-03-16 05:45] VITALS: PULSE 96
[2025-03-16] MEDS ORDERED: ONDANSETRON ODT4 MG SL (06:03)
[2025-03-16] MEDS ORDERED: PANTOPRAZOLE SO40 MG PO (06:03)
[2025-03-16 06:05] LABS: BILIRUBIN,URINE NEGATIVE (NEGATIVE); CLARITY,URINE CLEAR (CLEAR); COLOR,URINE YELLOW (YELLOW); GLUCOSE, URINE NEGATIVE (NEGATIVE); KETONES,URINE NEGATIVE (NEGATIVE); LEUKOCYTE ESTERASE ,URINE TRACE (NEGATIVE); NITRITE,URINE NEGATIVE (NEGATIVE); PH,URINE 6 (5 - 7); PROTEIN,URINE DIPSTICK NEGATIVE (NEGATIVE); URINE UROBILINOGEN 0.2 mg/dL (0.2 - 1)
[2025-03-16 06:15] LABS: BACTERIA,URINE MODERATE /HPF; EPITHELIAL CELLS,URINE MODERATE /LPF
[2025-03-16 06:49] VITALS: BP 131/81; O2SAT 100
== END 2025-03-16 06:51 | disposition home or self-care (01) ==
LOC: ER 03:25
DX: R10.33 Periumbilical pain (principal); R10.13 Epigastric pain; R07.89 Other chest pain; R11.2 Nausea with vomiting, unspecified; R19.7 Diarrhea, unspecified; I12.9 Hypertensive chronic kidney disease with stage 1 through stage 4 chronic kidney disease, or unspecified chronic kidney disease; E11.22 Type 2 diabetes mellitus with diabetic chronic kidney disease; E11.65 Type 2 diabetes mellitus with hyperglycemia; N18.9 Chronic kidney disease, unspecified; I50.9 Heart failure, unspecified; I25.10 Atherosclerotic heart disease of native coronary artery without angina pectoris; D64.9 Anemia, unspecified; E78.5 Hyperlipidemia, unspecified; M32.9 Systemic lupus erythematosus, unspecified; H54.8 Legal blindness, as defined in USA; F41.9 Anxiety disorder, unspecified; R94.31 Abnormal electrocardiogram [ECG] [EKG]; Z87.19 Personal history of other diseases of the digestive system
CPT/HCPCS: 36415; 71045; 74177; 80053; 81001; 83690; 84484; 85025; 93005; 99284; J2270; J2405; J2470; Q9967